=== PATIENT | male | born 1955 | race American Indian/Alaskan Native ===

== ENCOUNTER 2017-10-10 11:30 | Emergency (ER) | payer MEDICAID ==
[2017-10-10 11:36] VITALS: BP 144/77
[2017-10-10] MEDS ORDERED: BENADRYL PO ONE (13:09)
[2017-10-10] MEDS ORDERED: TYLENOL PO ONE (13:10)
--- NOTE | 2017-10-10 13:25 | Emergency Department Report ---
HPI - General Chief Complaint: Earache Time Seen by Provider: 10/10/17 12:54 - HPI HPI: The patient is a 61-year-old male presents for evaluation of ear pain. The patient reports left-sided ear pain for the past one week, pressure-like in quality, moderate in severity, exacerbated with chewing. The patient denies fever, head injury, headache, neck pain, neck stiffness, vision or hearing changes, smell or taste changes, paresthesias, facial drooping, slurred speech, seizure-like activity, urine or bowel incontinence or retention, or other focal neurological deficit. ED Past Medical Hx - Past Medical History Previous Medical History?: Yes Hx Hypertension: Yes Hx Congestive Heart Failure: No Hx Diabetes: No Hx Pulmonary Embolism: No Hx Sickle Cell Disease: No Hx Arthritis: Yes Hx Seizures: No Hx Kidney Stones: Yes Hx Asthma: No Hx COPD: No Hx Tuberculosis: No Hx Dementia: No Hx HIV: No Additional medical history: hyperlipidemia - Surgical History Past Surgical History?: Yes Hx Open Heart Surgery: No Hx Cholecystectomy: No Hx Appendectomy: No Hx Breast Surgery: No Additional Surgical History: rt toe surgery. VASECTOMY - Social History Smoking Status: Never Smoker Substance Use Type: Alcohol, Marijuana, Prescribed - Medications Home Medications: Home Medications Medication Instructions Recorded Confirmed Last Taken Type Pantoprazole [Protonix TAB] 40 mg PO QDAY #30 tablet 10/24/14 02/08/16 06/16/15 Rx Lisinopril [Zestril TAB] 40 mg PO QDAY 06/16/15 02/08/16 06/16/15 History Simvastatin [Zocor TAB] 10 mg PO QHS 06/16/15 02/08/16 06/15/15 History HYDROcodone/APAP 10-325 [[place] 1 each PO Q6HR PRN 02/08/16 02/08/16 Unknown History 10/325] Aspirin EC [Aspirin Enteric Coated 325 mg PO QDAY #30 tablet 02/09/16 Unknown Rx TAB] amLODIPine [Norvasc] 5 mg PO DAILY #30 tab 02/09/16 Unknown Rx Ondansetron [Zofran Odt] 4 mg PO Q8HR PRN #20 tab.rapdis 10/07/16 Unknown Rx traMADol [Ultram 50 MG tab] 50 mg PO Q6HR PRN #20 tablet 10/07/16 Unknown Rx Loratadine [Claritin] 10 mg PO DAILY #30 tablet 10/10/17 Unknown Rx guaiFENesin [Mucinex] 600 mg PO BID #30 tab.er.12h 10/10/17 Unknown Rx traMADol [Ultram 50 MG tab] 50 mg PO Q6HR PRN #12 tablet 10/10/17 Unknown Rx ED Review of Systems ROS: Stated complaint: LEFT EAR PAIN Other details as noted in HPI Constitutional: denies: fever ENT: reports ear pain denies: throat or neck pain Respiratory: denies: cough, shortness of breath Cardiovascular: denies: chest pain Endocrine: denies unexplained weight loss or gain Gastrointestinal: denies: abdominal pain, nausea Genitourinary: denies: dysuria Musculoskeletal: denies: leg swelling Skin: denies: rash Neurological: denies: headache Hematological/Lymphatic: denies: easy bleeding or easy bruising Psych: denies sadness or hopelessness Physical Exam - Physical Exam Vital Signs: Vital Signs 10/10/17 11:33 Temperature 97.8 F Pulse Rate 59 L Respiratory 18 Rate Blood Pressure 144/77 O2 Sat by Pulse 100 Oximetry Physical Exam: General: well-nourished, well-developed, no acute distress Head: Normocephalic, atraumatic Eyes: normal sclera ENT: Mucous membranes are pink and moist, normal tympanic membranes bilaterally , no mastoid tenderness, redness, or fluctuance Neck: trachea midline, neck supple, No neck stiffness, no cervical adenopathy Respiratory: Breath sounds equal bilaterally, no wheezing, rales, or rhonchi Cardio: S1 and S2 present, no murmurs, rubs, gallops, capillary refill is brisk Musc: No pitting edema Skin: No rash Neuro: no facial drooping, normal speech Psych: Normal affect ED Course Vital Signs 10/10/17 11:33 Temperature 97.8 F Pulse Rate 59 L Respiratory 18 Rate Blood Pressure 144/77 O2 Sat by Pulse 100 Oximetry ED Medical Decision Making - Medical Decision Making Patient's and examined by myself. Findings of exam are suggestive of viral otitis versus allergy related otitis. No signs of otitis media, otitis externa , or mastoiditis. The patient was given an anti-histamine tablet and tylenol for pain. The patient was reevaluated and reported that their symptoms were markedly improved. The patient is stable for discharge with outpatient follow- up. The patient is given follow-up and return instructions. The patient expressed understanding and agreed with the plan. The patient is discharged in stable condition. Critical care attestation.: If time is entered above; I have spent that time in minutes in the direct care of this critically ill patient, excluding procedure time. ED Disposition Clinical Impression: Acute pain of left ear Disposition: DC- TO HOME OR SELFCARE Is pt being admited?: No Does the pt Need Aspirin: No Condition: Stable Instructions: Earache (ED), Allergic Rhinitis (ED) Referrals: [facility] [Outside] - 3-5 Days Time of Disposition: 13:25
== END 2017-10-10 15:06 | disposition home or self-care (01) ==
LOC: ED 11:30
DX: H92.02 Otalgia, left ear (principal); I10 Essential (primary) hypertension
CPT/HCPCS: 99282

== ENCOUNTER 2018-04-28 14:28 | Emergency (ER) | payer MEDICAID ==
--- NOTE | 2018-04-28 16:04 | Emergency Department Report ---
- General Chief Complaint: Earache Stated Complaint: POSS EAR INFECTION Time Seen by Provider: 04/28/18 15:51 Source: patient Mode of arrival: Ambulatory Limitations: No Limitations - History of Present Illness Initial Comments: ear congestion, decreased hearing for 3 weeks, chest congestion 2 months, Dr. Emanuel Gaona prescribed abx 2 months ago MD Complaint: cough, other (decreased hearing both ear) -: Gradual, month(s) (1-2 ) Improves With: nothing - Related Data Home Medications Medication Instructions Recorded Confirmed Last Taken Lisinopril [Zestril TAB] 40 mg PO QDAY 06/16/15 02/08/16 06/16/15 Simvastatin [Zocor TAB] 10 mg PO QHS 06/16/15 02/08/16 06/15/15 HYDROcodone/APAP 10-325 [[place] 1 each PO Q6HR PRN 02/08/16 02/08/16 Unknown 10/325] Previous Rx's Medication Instructions Recorded Last Taken Type Pantoprazole [Protonix TAB] 40 mg PO QDAY #30 tablet 10/24/14 06/16/15 Rx Aspirin EC [Aspirin Enteric Coated 325 mg PO QDAY #30 tablet 02/09/16 Unknown Rx TAB] amLODIPine [Norvasc] 5 mg PO DAILY #30 tab 02/09/16 Unknown Rx Ondansetron [Zofran Odt] 4 mg PO Q8HR PRN #20 tab.rapdis 10/07/16 Unknown Rx traMADol [Ultram 50 MG tab] 50 mg PO Q6HR PRN #20 tablet 10/07/16 Unknown Rx Loratadine [Claritin] 10 mg PO DAILY #30 tablet 10/10/17 Unknown Rx guaiFENesin [Mucinex] 600 mg PO BID #30 tab.er.12h 10/10/17 Unknown Rx traMADol [Ultram 50 MG tab] 50 mg PO Q6HR PRN #12 tablet 10/10/17 Unknown Rx Amoxicillin/Potassium Clav 1 tab PO BID 7 Days #14 tablet 04/28/18 Unknown Rx [Augmentin 875-125 Tablet] Hydrocodone/Chlorphen P-Stirex 5 ml PO BID 10 Days #100 ml 04/28/18 Unknown Rx [Tussionex Pennkinetic Susp] Loratadine 10 mg PO DAILY 30 Days #30 tablet 04/28/18 Unknown Rx predniSONE [Deltasone] 3 tab PO QDAY 5 Days #15 tab 04/28/18 Unknown Rx Allergies Allergy/AdvReac Type Severity Reaction Status Date / Time No Known Allergies Allergy Verified 04/28/18 14:35 ED Review of Systems ROS: Stated complaint: POSS EAR INFECTION Other details as noted in HPI Constitutional: denies: fever, malaise ENT: hearing loss. denies: throat pain Respiratory: cough ED Past Medical Hx - Past Medical History Previous Medical History?: Yes Hx Hypertension: Yes Hx Congestive Heart Failure: No Hx Diabetes: No Hx Pulmonary Embolism: No Hx Sickle Cell Disease: No Hx Arthritis: Yes Hx Seizures: No Hx Kidney Stones: Yes Hx Asthma: No Hx COPD: No Hx Tuberculosis: No Hx Dementia: No Hx HIV: No Additional medical history: hyperlipidemia - Surgical History Past Surgical History?: Yes Hx Open Heart Surgery: No Hx Cholecystectomy: No Hx Appendectomy: No Hx Breast Surgery: No Additional Surgical History: rt toe surgery. VASECTOMY - Social History Smoking Status: Never Smoker Substance Use Type: None - Medications Home Medications: Home Medications Medication Instructions Recorded Confirmed Last Taken Type Pantoprazole [Protonix TAB] 40 mg PO QDAY #30 tablet 10/24/14 02/08/16 06/16/15 Rx Lisinopril [Zestril TAB] 40 mg PO QDAY 06/16/15 02/08/16 06/16/15 History Simvastatin [Zocor TAB] 10 mg PO QHS 06/16/15 02/08/16 06/15/15 History HYDROcodone/APAP 10-325 [[place] 1 each PO Q6HR PRN 02/08/16 02/08/16 Unknown History 10/325] Aspirin EC [Aspirin Enteric Coated 325 mg PO QDAY #30 tablet 02/09/16 Unknown Rx TAB] amLODIPine [Norvasc] 5 mg PO DAILY #30 tab 02/09/16 Unknown Rx Ondansetron [Zofran Odt] 4 mg PO Q8HR PRN #20 tab.rapdis 10/07/16 Unknown Rx traMADol [Ultram 50 MG tab] 50 mg PO Q6HR PRN #20 tablet 10/07/16 Unknown Rx Loratadine [Claritin] 10 mg PO DAILY #30 tablet 10/10/17 Unknown Rx guaiFENesin [Mucinex] 600 mg PO BID #30 tab.er.12h 10/10/17 Unknown Rx traMADol [Ultram 50 MG tab] 50 mg PO Q6HR PRN #12 tablet 10/10/17 Unknown Rx Amoxicillin/Potassium Clav 1 tab PO BID 7 Days #14 tablet 04/28/18 Unknown Rx [Augmentin 875-125 Tablet] Hydrocodone/Chlorphen P-Stirex 5 ml PO BID 10 Days #100 ml 04/28/18 Unknown Rx [Tussionex Pennkinetic Susp] Loratadine 10 mg PO DAILY 30 Days #30 tablet 04/28/18 Unknown Rx predniSONE [Deltasone] 3 tab PO QDAY 5 Days #15 tab 04/28/18 Unknown Rx ED Physical Exam - General Limitations: No Limitations General appearance: alert, in no apparent distress - Head Head exam: Present: atraumatic, normocephalic - Eye Eye exam: Present: normal appearance - ENT ENT exam: Present: mucous membranes moist, other (opaque tympanic effusions bilaterally ) - Neck Neck exam: Present: normal inspection. Absent: tenderness, meningismus - Respiratory Respiratory exam: Present: normal lung sounds bilaterally. Absent: respiratory distress, wheezes, rales, rhonchi - Cardiovascular Cardiovascular Exam: Present: regular rate, normal rhythm, normal heart sounds. Absent: systolic murmur, diastolic murmur, rubs, gallop - GI/Abdominal GI/Abdominal exam: Present: soft, normal bowel sounds. Absent: distended, tenderness, guarding, rebound - Rectal Rectal exam: Present: deferred - Extremities Exam Extremities exam: Present: normal inspection - Back Exam Back exam: Present: normal inspection - Neurological Exam Neurological exam: Present: alert, oriented X3 - Psychiatric Psychiatric exam: Present: normal affect, normal mood - Skin Skin exam: Present: warm, dry, intact, normal color. Absent: rash ED Course Vital Signs 04/28/18 14:33 Temperature 99.1 F Pulse Rate 71 Respiratory 16 Rate Blood Pressure 144/83 O2 Sat by Pulse 99 Oximetry ED Medical Decision Making - Medical Decision Making bilateral otitis media, acute bronchitis, abx indicated due to symptoms > 3 weeks rx: augmentin, loratadine, tussionex, prednisone Critical care attestation.: If time is entered above; I have spent that time in minutes in the direct care of this critically ill patient, excluding procedure time. ED Disposition Clinical Impression: Bilateral otitis media with effusion, Acute bronchitis Disposition: DC- TO HOME OR SELFCARE Is pt being admited?: No Does the pt Need Aspirin: No Condition: Stable Instructions: Acute Bronchitis (ED), Otitis Media (ED) Prescriptions: Amoxicillin/Potassium Clav [Augmentin 875-125 Tablet] 1 tab PO BID 7 Days #14 tablet Hydrocodone/Chlorphen P-Stirex [Tussionex Pennkinetic Susp] 5 ml PO BID 10 Days #100 ml Loratadine 10 mg PO DAILY 30 Days #30 tablet predniSONE [Deltasone] 3 tab PO QDAY 5 Days #15 tab Referrals: EMANUEL GAONA MD [Staff Physician] - 3-5 Days
[2018-04-28 16:16] VITALS: BP 136/74
== END 2018-04-28 16:13 | disposition home or self-care (01) ==
LOC: ED 14:28
DX: H66.93 Otitis media, unspecified, bilateral (principal); J20.9 Acute bronchitis, unspecified; I10 Essential (primary) hypertension; M19.90 Unspecified osteoarthritis, unspecified site; E78.00 Pure hypercholesterolemia, unspecified; Z79.82 Long term (current) use of aspirin
CPT/HCPCS: 99282